=== PATIENT | male | born 1985 | race Caucasian/White ===

== ENCOUNTER 2018-12-09 20:49 | Emergency (ER) | payer SELFPAY ==
--- NOTE | 2018-12-09 21:59 | PDOC ---
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 denies vision changes " i feel like something is stuck in my eye." + injected and tearing left eye PMHX: none A: left eye erythema P: patient to the ER for further management of care. Discharge Disposition - Diagnosis Redness of left eye - Referrals - Patient Instructions - Post Discharge Activity
[2018-12-09 22:00] VITALS: BP 144/91; PULSE 88; TEMP 98.4; BMI 39.5
[2018-12-09] MEDS ORDERED: TETRACAINE 0.5% OPHTH SOLN 2 ML BOTTLE ONE (23:23)
[2018-12-09] MEDS ORDERED: FLUORESCEIN NA 1 EA STRIP ONE ×2 (23:23→23:50)
--- NOTE | 2018-12-10 00:45 | PDOC ---
History of Present Illness - General Chief Complaint: Eye Problem Stated Complaint: EYE PROBLEM Time Seen by Provider: 12/09/18 21:56 History Source: Patient Exam Limitations: No Limitations Past History - Past Medical History Allergies/Adverse Reactions: Allergies Allergy/AdvReac Type Severity Reaction Status Date / Time No Known Allergies Allergy Verified 12/09/18 22:00 Home Medications: Ambulatory Orders Ciprofloxacin 0.3% Eye Drops [Ciloxan 0.3% Eye Drops -] 1 drop OS QID #1 bottle 12/10/18 COPD: No - Immunization History Immunization Up to Date: No - Suicide/Smoking/Psychosocial Hx Smoking History: Never smoked Have you smoked in the past 12 months: No Number of Cigarettes Smoked Daily: 0 Information on smoking cessation initiated: No Hx Alcohol Use: No Drug/Substance Use Hx: No Substance Use Type: None *Physical Exam - Vital Signs Last Vital Signs Temp Pulse Resp BP Pulse Ox 98.4 F 88 17 144/91 100 12/09/18 21:58 12/09/18 21:58 12/09/18 21:58 12/09/18 21:58 12/09/18 21:58 - Physical Exam General Appearance: No: Apparent Distress HEENT: positive: EOMI, ERMA, Other (+L eye injected, +tearing, no FB noted, vision 20/20 L eye, 20/20 R eye, +dye uptake) Neurologic: positive: Alert, Normal Mood/Affect Medical Decision Making - Medical Decision Making 32 y/o M with no sig pmh presents with L eye pain from today. 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 +eye pain, +tearing of eye, +slight photophobia. Denies wearing glasses or contacts. Denies MORRISON, vomiting, blurred vision. L eye corneal abrasion 12/10/18 00:42 *DC/Admit/Observation/Transfer Diagnosis at time of Disposition: Corneal abrasion, left Qualifiers: Encounter type: initial encounter Qualified Code(s): S05.02XA - Injury of conjunctiva and corneal abrasion without foreign body, left eye, initial encounter - Discharge Dispostion Disposition: HOME Condition at time of disposition: Stable Decision to Admit order: No - Prescriptions Prescriptions: Ciprofloxacin 0.3% Eye Drops [Ciloxan 0.3% Eye Drops -] 1 drop OS QID #1 bottle - Referrals Referrals: Kiki Mondragon MD [Staff Physician] - Call tomorrow - Patient Instructions Printed Discharge Instructions: DI for Corneal Abrasion Additional Instructions: Thank you for choosing [facility]. It was a pleasure taking care of you. Please use eye drops of corneal abrasion as directed for 5 days You were referred to eye doctor for further evaluation. Please follow-up today Return to the Emergency Department if your symptoms worsen or persist or have other concerning symptoms. Print Language: NIGERIEN - Post Discharge Activity
== END 2018-12-10 01:14 | disposition home or self-care (01) ==
LOC: JERFT 20:49 → JER 20:49
DX: S05.02XA Injury of conjunctiva and corneal abrasion without foreign body, left eye, initial encounter (principal); X58.XXXA Exposure to other specified factors, initial encounter; Y93.89 Activity, other specified; Y92.89 Other specified places as the place of occurrence of the external cause; Y99.0 Civilian activity done for income or pay
CPT/HCPCS: 99281-25